=== PATIENT | male | born 1955 | race Caucasian/White ===

== ENCOUNTER → 2021-07-22 | Day surgery (SDC) | payer MEDICARE ==
[~2021-07-22] VITALS: Ht 175.3 cm; Wt 83.9 kg
[~2021-07-22] MED LIST: LIPITOR 10MG TA10 MG PO; LOPRESSOR25 MG PO; METFORMIN HCL500 MG PO; OMEPRAZOLE40 MG PO; ZESTORETIC 20-1 EAC1 PO
[2021-07-22 07:29] LABS: HCT 50.2 % (42.0-52.0); HGB 17.1 g/dl (13.2-18.0); MCH 31.8 pg (25.0-31.0); MCHC 34.1 g/dL (32.0-36.0); MCV 93.5 fL (78.0-100.0); MPV 10.1 fL (6.0-9.5); RBC 5.37 M/uL (4.70-6.00); WBC 15.7 K/uL (4.0-10.5)
[2021-07-22 08:01] LABS: BILIRUBIN - TOTAL 1.4 mg/dL (0.2-1.0); BUN/CREAT RATIO (CALC) 15.5 RATIO; CREATININE 1.1 mg/dL (0.67-1.17); GLOBULIN (CALCULATION) 4.2 g/dL; TOTAL PROTEIN 8.2 g/dL (6.4-8.2)
== END | disposition home or self-care (01) ==
LOC: FAS 07:01
PROVIDERS: Surgery
DX: D12.3 Benign neoplasm of transverse colon (principal); D12.0 Benign neoplasm of cecum; K29.50 Unspecified chronic gastritis without bleeding; K29.80 Duodenitis without bleeding; K21.00 Gastro-esophageal reflux disease with esophagitis, without bleeding; I10 Essential (primary) hypertension; E11.51 Type 2 diabetes mellitus with diabetic peripheral angiopathy without gangrene; Z79.84 Long term (current) use of oral hypoglycemic drugs; B96.81 Helicobacter pylori [H. pylori] as the cause of diseases classified elsewhere; Z86.010 Personal history of colon polyps
CPT/HCPCS: 36415; 80053; J1610; J2250; J7120